=== PATIENT | female | born 1995 | race Caucasian/White ===

== ENCOUNTER 2020-10-04 14:12 | Emergency (ER) | payer MEDICAID ==
[~2020-10-04] VITALS: Ht 154.9 cm; Wt 59.1 kg
[2020-10-04 14:18] VITALS: TEMP 98
[2020-10-04] MEDS ORDERED: OMNICEF 300MG300 MG PO (14:43)
[2020-10-04 14:53] VITALS: BP 110/69; PULSE 92
== END 2020-10-04 14:52 | disposition home or self-care (01) ==
LOC: COL.ER 14:12
DX: J01.90 Acute sinusitis, unspecified (principal)